=== PATIENT | female | born 1965 | race African-American/Black ===

== ENCOUNTER 2016-11-29 05:00 | Emergency (ER) | payer BC ==
--- NOTE | ~2016-11-29 | CR72 ---
[facility] A Service of [facility] RADIOLOGY TEXT RESULTS PATIENT: RADHA TELLEZ LOCATION: [facility] : 65 UNIT #: [id number] AGE: [address]: Negrito Abdi MD SEX: F ORDER DR: [id number] [facility] [address] [place], [place] [address] [id number] MR#: [id number] Acc #: [id number] NAME: RADHA TELLEZ : 1965 SEX: F STUDY DATE/TIME: 11/29/2016 6:28 UNIT: [facility] ROOM: STUDY DESCRIPTION: CR Chest Single View Portable Attending Physician: Negrito Abdi M.D. Ordering Physician: Pola Escobar Aprn Primary Care Physician: No Primary Care Physician MEDICAL IMAGING REPORT This report is preliminary unless electronic signature is present EXAM Portable chest, 11/29/2016, one view. CLINICAL HISTORY Sore throat and short of air for 1 day. COMPARISON Portable chest, 12/29/2010. FINDINGS A single AP portable view of the chest shows both lungs to be clear. The heart is normal in size. The mediastinal contour is normal. No significant bone abnormalities are seen. IMPRESSION Normal portable chest. Dictated by... Rome Perez M.D. THIS IS AN ELECTRONICALLY VERIFIED REPORT Rome Perez M.D. at 12/02/2016 7:06 PM TEV/pc TD: 11/29/2016 10:16 JOB #: [id number] MEDICAL IMAGING REPORT COPY
--- NOTE | ~2016-11-29 | EKG ---
PATIENT: RADHA TELLEZ UNIT #: [id number] Ventricular Rate: 78 BPM Atrial Rate: 78 BPM P-R Interval: 150 ms QRS Duration: 78 ms Q-T Interval: 352 ms QTC Calculation(Bezet): 401 ms P [place]: 38 degrees Calculated R [place]: 9 degrees Calculated T [place]: 25 degrees Diagnosis Line: Normal sinus rhythm Diagnosis Line: Normal ECG Diagnosis Line: No previous ECGs available Diagnosis Line: Confirmed by DEVIN CAMPUZANO MD ([id number]) on Diagnosis Line: 11/30/2016 11:45:33 AM INTERPRETING MD: MARIA GUADALUPE
[2016-11-29 06:37] LABS: BASOPHIL% 0.3 % (0-2.5); EOSINOPHIL# 0.1 X10e3 (0-0.7); EOSINOPHIL% 0.8 % (0.0-7.0); HEMATOCRIT 39.1 % (35.0-45.0); LYMPHOCYTE# 3.1 X10e3 (1.0-3.5); LYMPHOCYTE% 31.7 % (17.0-45.0); MEAN CELL VOLUME 84.7 FL (83-96); MEAN CORPUSCULAR HEMOGLOBIN 28.2 PG (28-34); MEAN CORPUSCULAR HGB CONC 33.3 g/dL (30-36); MEAN PLATELET VOLUME 7.1 FL (6.5-11.5); MONOCYTE# 0.6 X10e3 (0-1.0); MONOCYTE% 6.2 % (3.0-12.0); PLATELET COUNT 273 X10e3 (140-420); RED BLOOD COUNT 4.62 X10e (3.90-5.30); RED CELL DISTRIBUTION WIDTH 12.5 % (11.0-15.5); WHITE BLOOD COUNT 9.9 X10e3 (4.0-10.5)
[2016-11-29 06:37] LABS: POC - TROPONIN <0.05 ng/mL (<=0.05)
[2016-11-29 06:42] LABS: DIFF IND NO
[2016-11-29 07:06] LABS: BLOOD UREA NITROGEN 13 mg/dL (9-23); BUN/CREATININE RATIO 14.44; CALCIUM SERUM 9.1 mg/dL (8.4-10.2); CARBON DIOXIDE 25 mmol/L (22-31); CHLORIDE 112 mmol/L (100-111); CREATININE SERUM 0.9 mg/dL (0.6-1.4); GLOM FILT RATE Estimated ABOVE60 mL/min (>60); GLUCOSE FASTING 130 mg/dL (70-110); POTASSIUM 3.8 mmol/L (3.5-5.1); SODIUM 143 mmol/L (135-145)
[2016-11-29 07:24] LABS: ALBUMIN SERUM 3.7 g/dL (3.5-5.0); ALKALINE PHOSPHATASE 99 U/L (32-92); ALT (SGPT) 13 U/L (10-40); AMYLASE 28 U/L (0-46); AST (SGOT) 25 U/L (10-42); BILIRUBIN,TOTAL 0.4 mg/dL (0.2-2.0); LIPASE 36 U/L (22-51); PROTEIN TOTAL SERUM 7.3 g/dL (6.0-8.3)
[2016-11-29 07:25] LABS: BILIRUBIN, DIRECT <0.1 mg/dL (0.0-0.2); BILIRUBIN,INDIRECT 0.3 mg/dL (0.0-0.9)
[2016-11-29 07:45] LABS: URINE APPEARANCE CLEAR; URINE BILIRUBIN NEG (NEG); URINE BLOOD NEG (NEG); URINE COLOR YELLOW; URINE GLUCOSE NEG (NEG); URINE KETONE NEG (NEG); URINE LEUKOCYTE ESTERASE NEG (NEG); URINE NITRATE NEG (NEG); URINE PH 5.5 (5-8); URINE PROTEIN NEG (NEG); URINE SPECIFIC GRAVITY 1.011 (1.003-1.035); URINE UROBILINOGEN 0.2 MG/DL (NEG)
[2016-11-29 08:09] LABS: CULTURE INDICATED? NO
== END 2016-11-29 08:34 | disposition home or self-care (01) ==
LOC: CED 05:00
PROVIDERS: Nurse Practitioner Family
DX: J02.9 Acute pharyngitis, unspecified (principal); R10.13 Epigastric pain; Z90.710 Acquired absence of both cervix and uterus
CPT/HCPCS: 71010; 80048; 80076; 81003; 82150; 82553; 83690; 84484; 84703; 85025; 87651; 87880; 93005; 99283; 99284